=== PATIENT | male | born 1930 | race Caucasian/White ===

== ENCOUNTER → 2018-08-04 | Outpatient (CLI) | payer OTHER ==
[~2018-08-04] MED LIST: ACET325 PO; AMLO5 PO; ANORO ELLIPTA1 EACH INH; ASPI81CH PO; ATOR80 PO; CARV25 PO; CITA20 PO; CLOP75 PO; FINA5 PO; FLUSAL5005 INH; HUMALOG KW200 UNIT/1 SC; INSULANPEN SC; ISOMON20 PO; Lasix40 MG PO; METF500 PO; NAPR500 PO; NYSTRITC TOP; OCUVITE EYE +1 EACH; Ocuvite Lutein1 EACH PO; Omeprazole20 M1 PO; TAMS.4ER PO; Ventolin Soln3 ML INH; XARELTO15 MG PO
[2018-08-04 14:51] LABS: Source, Urine Voided
[2018-08-04 15:04] LABS: Appearance, Urine Clear (Clear); Bilirubin, Urine Neg (Neg); Blood, Urine Neg (Neg); Color, Urine Yellow (P-Yellow); Glucose Qualitative, Urine Neg (Neg); Ketones, Urine Neg (Neg); Leukocyte Esterase, Urine Neg (Neg); Nitrite, Urine Neg (Neg); Protein, Urine 2+ (Neg); Urobilinogen, Urine NORM (Normal)
[2018-08-04 15:22] LABS: Bacteria Rare /hpf; Mucus Light (0-Heavy); Red Blood Cells, Urine Not Seen /hpf (0-2); Squamous Epithelial Cells Few /hpf (Few); White Blood Cells, Urine 0-2 /hpf (0-5)
[2018-08-04 15:23] LABS: Hyaline Casts Rare /lpf (0-2)
[2018-08-04 15:24] LABS: Granular Casts Rare /lpf (0)
== END ==
LOC: LAB 14:41 → LAB SHORT 14:41
PROVIDERS: Nurse Practitioner Family
DX: N39.0 Urinary tract infection, site not specified (principal)
CPT/HCPCS: 81001

== ENCOUNTER 2018-11-24 17:07 | Emergency (ER) | payer OTHER ==
[~2018-11-24] VITALS: Ht 175.3 cm; Wt 86.2 kg
[2018-11-24 17:51] LABS: BASOPHILS ABSOLUTE AUTO 0.03 K/mm3 (0.00-0.23); BASOPHILS PERCENT AUTO 0 % (0-2); EOSINOPHILS ABSOLUTE AUTO 0.12 K/mm3 (0.00-0.68); EOSINOPHILS PERCENT AUTO 2 % (0-6); Hematocrit 36.5 % (37.0-53.0); Hemoglobin 11.5 g/dL (13.5-17.5); IMMATURE GRAN ABSOLUTE AUTO 0.04 K/mm3 (0.00-0.10); IMMATURE GRAN PERCENT AUTO 1 % (0-1); LYMPHOCYTES ABSOLUTE AUTO 2.19 K/mm3 (0.84-5.20); LYMPHOCYTES PERCENT AUTO 27 % (21-46); MONOCYTES ABSOLUTE AUTO 0.83 K/mm3 (0.16-1.47); MONOCYTES PERCENT AUTO 10 % (4-13); Mean Corpuscular HGB 28.9 pg (26.0-34.0); Mean Corpuscular HGB Conc 31.5 g/dL (31.5-36.5); Mean Corpuscular Volume 92 fL (80-100); Mean Platelet Volume 10.1 fL (9.1-12.4); NEUTROPHILS ABSOLUTE AUTO 5.06 K/mm3 (1.96-9.15); NEUTROPHILS PERCENT AUTO 61 % (41-73); Platelet Count 188 K/mm3 (150-400); RDW Coefficient Variation 14.1 % (11.7-14.2); RDW Standard Deviation 48.3 fL (35.1-46.3); Red Blood Cell Count 3.98 M/mm3 (4.30-5.90); White Blood Cell Count 8.27 K/mm3 (4.00-11.30)
[2018-11-24 18:08] LABS: International Normalized Ratio 0.99; Prothrombin Time Results 10.5 Sec (9.7-11.5)
[2018-11-24 18:16] LABS: Albumin, Blood 3.7 g/dL (3.4-5.0); Bilirubin, Total 0.5 mg/dL (0.1-1.0); Bun/Creatinine Ratio 15.7 (12.0-20.0); Calcium, Blood 9.1 mg/dL (8.5-10.1); Creatinine, Blood 1.85 mg/dL (0.60-1.20); Globulin, Blood 3.7 g/dL (2.2-4.0); Potassium, Blood 4.5 mmol/L (3.5-5.5); Total Protein, Blood 7.4 g/dL (6.4-8.2)
[2018-11-24] MEDS ORDERED: BACL10 PO (18:16)
== END 2018-11-24 20:23 | disposition home or self-care (01) ==
LOC: ER 17:07
PROVIDERS: Emergency Medicine
DX: S40.021A Contusion of right upper arm, initial encounter (principal); I13.0 Hypertensive heart and chronic kidney disease with heart failure and stage 1 through stage 4 chronic kidney disease, or unspecified chronic kidney disease; I50.30 Unspecified diastolic (congestive) heart failure; N18.3 Chronic kidney disease, stage 3 (moderate); E11.22 Type 2 diabetes mellitus with diabetic chronic kidney disease; F01.50 Vascular dementia, unspecified severity, without behavioral disturbance, psychotic disturbance, mood disturbance, and anxiety; I25.10 Atherosclerotic heart disease of native coronary artery without angina pectoris; E78.5 Hyperlipidemia, unspecified; N40.0 Benign prostatic hyperplasia without lower urinary tract symptoms; Z79.4 Long term (current) use of insulin; Z86.711 Personal history of pulmonary embolism; Z79.899 Other long term (current) drug therapy; X58.XXXA Exposure to other specified factors, initial encounter
CPT/HCPCS: 80053; 85025; 85610; 85730; 93971; 99284-25

== ENCOUNTER → 2019-01-09 | Outpatient (CLI) | payer OTHER ==
[~2019-01-09] MED LIST changes: +BACL10 PO; +DICLOFENAC SODI25 GM; +FURO40 PO; +VITAMIN D250000 UNIT PO; +Zinc Oxide56.7 GM; +[UNRECOGNIZED DRUG - OTHER]
[2019-01-09 14:16] LABS: Creatinine, Urine Random 46.8 mg/dL (27.00-270.00); Protein, Urine Random 32.4 mg/dL (0.0-11.9)
== END | disposition home or self-care (01) ==
LOC: LAB SHORT 13:44 → LAB 13:44
PROVIDERS: Internal Medicine
DX: N18.3 Chronic kidney disease, stage 3 (moderate) (principal)
CPT/HCPCS: 82570; 84156

== ENCOUNTER 2019-01-14 09:02 | Emergency (ER) | payer OTHER ==
[~2019-01-14] VITALS: Ht 177.8 cm; Wt 113.4 kg
[~2019-01-14 09:02] MED LIST changes: -DICLOFENAC SODI25 GM; -FURO40 PO; -VITAMIN D250000 UNIT PO; -Zinc Oxide56.7 GM; -[UNRECOGNIZED DRUG - OTHER]
[2019-01-14] MEDS ORDERED: XARELTO15 MG PO (09:24)
[2019-01-14] MEDS ORDERED: Zinc Oxide56.7 GM (09:26)
[2019-01-14] MEDS ORDERED: DICLOFENAC SODI25 GM (09:27)
[2019-01-14] MEDS ORDERED: [UNRECOGNIZED DRUG - OTHER] (09:28)
[2019-01-14] MEDS ORDERED: FINA5 PO (09:28)
[2019-01-14] MEDS ORDERED: VITAMIN D250000 UNIT PO (09:28)
[2019-01-14] MEDS ORDERED: INSULANPEN SC (09:29)
[2019-01-14] MEDS ORDERED: METF500 PO (09:29)
[2019-01-14] MEDS ORDERED: ISOMON20 PO (09:29)
[2019-01-14] MEDS ORDERED: FURO40 PO (09:29)
== END 2019-01-14 10:29 | disposition home or self-care (01) ==
LOC: ER 09:02
DX: S51.811A Laceration without foreign body of right forearm, initial encounter (principal); S01.81XA Laceration without foreign body of other part of head, initial encounter; D68.9 Coagulation defect, unspecified; V89.9XXA Person injured in unspecified vehicle accident, initial encounter; Z79.899 Other long term (current) drug therapy; Z79.4 Long term (current) use of insulin; I50.9 Heart failure, unspecified; Z86.73 Personal history of transient ischemic attack (TIA), and cerebral infarction without residual deficits
CPT/HCPCS: 70450; 99283-25; L0160

== ENCOUNTER 2019-08-14 15:06 | Inpatient (IN) | payer OTHER ==
[~2019-08-14] VITALS: Ht 177.8 cm; Wt 96.7 kg
[~2019-08-14 15:06] MED LIST changes: +VITAMIN D250000 UNIT PO; +Zinc Oxide56.7 GM; +[UNRECOGNIZED DRUG - OTHER]
[2019-08-14 16:25] LABS: BASOPHILS ABSOLUTE AUTO 0.03 K/mm3 (0.00-0.23); BASOPHILS PERCENT AUTO 0 % (0-2); EOSINOPHILS ABSOLUTE AUTO 0.07 K/mm3 (0.00-0.68); EOSINOPHILS PERCENT AUTO 1 % (0-6); IMMATURE GRAN ABSOLUTE AUTO 0.03 K/mm3 (0.00-0.10); IMMATURE GRAN PERCENT AUTO 0 % (0-1); LYMPHOCYTES ABSOLUTE AUTO 1.85 K/mm3 (0.84-5.20); LYMPHOCYTES PERCENT AUTO 27 % (21-46); MONOCYTES ABSOLUTE AUTO 0.74 K/mm3 (0.16-1.47); MONOCYTES PERCENT AUTO 11 % (4-13); Mean Corpuscular HGB 27.8 pg (26.0-34.0); Mean Corpuscular HGB Conc 31.3 g/dL (31.5-36.5); Mean Corpuscular Volume 89 fL (80-100); Mean Platelet Volume 11.7 fL (9.1-12.4); NEUTROPHILS ABSOLUTE AUTO 4.21 K/mm3 (1.96-9.15); NEUTROPHILS PERCENT AUTO 61 % (41-73); Platelet Count 157 K/mm3 (150-400); RDW Coefficient Variation 14.3 % (11.7-14.2); RDW Standard Deviation 46.5 fL (35.1-46.3); White Blood Cell Count 6.93 K/mm3 (4.00-11.30)
[2019-08-14 17:02] LABS: Albumin, Blood 3.4 g/dL (3.4-5.0); Albumin/Globulin Ratio 0.8 (0.8-1.8); Bilirubin, Total 0.3 mg/dL (0.1-1.0); Bun/Creatinine Ratio 19.6 (12.0-20.0); Calcium, Blood 8.7 mg/dL (8.5-10.1); Creatinine, Blood 1.79 mg/dL (0.60-1.20); Globulin, Blood 4.1 g/dL (2.2-4.0); Potassium, Blood 4.2 mmol/L (3.5-5.5); Total Protein, Blood 7.5 g/dL (6.4-8.2); Troponin I 0.027 ng/mL (0.000-0.040)
[2019-08-14] MEDS ORDERED: INSULANPEN SC (18:20)
[2019-08-14] MEDS ORDERED: NOVOLOG FL100 UNIT/1 SC ×2 (18:21→18:22)
[2019-08-14] MEDS ORDERED: XARELTO10 MG PO (18:30)
[2019-08-14] MEDS ORDERED: DICLOFENAC SOD100 G1 TOP (18:32)
[2019-08-14] MEDS ORDERED: FURO40 PO (18:33)
[2019-08-14] MEDS ORDERED: ISOMON20 PO (18:33)
[2019-08-14] MEDS ORDERED: FINA5 PO (18:33)
[2019-08-14] MEDS ORDERED: METF500C PO (18:34)
[2019-08-14] MEDS ORDERED: ATOR80 PO (18:35)
[2019-08-14] MEDS ORDERED: CLOP75 PO (18:35)
[2019-08-14] MEDS ORDERED: CITA20 PO (18:35)
[2019-08-14] MEDS ORDERED: BACL10 PO (18:36)
[2019-08-14] MEDS ORDERED: CARVEDILOL12.5 MG PO (18:36)
[2019-08-14] MEDS ORDERED: OMEP20ER PO (18:37)
[2019-08-14] MEDS ORDERED: Nystatin15 GM TOP (18:38)
[2019-08-14] MEDS ORDERED: Milk Of Ma400 MG/5 M PO (18:39)
[2019-08-14] MEDS ORDERED: TAMS.4ER PO (18:40)
[2019-08-14 18:44] LABS: Influenza A Negative (NEGATIVE); Influenza B Negative (NEGATIVE)
[2019-08-14 18:59] LABS: Base Excess Venous -0.1 mmol/L; Bicarbonate Venous 23.7 mmol/L (24.0-30.0); PO2 Venous 38.8 mmHg (38-42); pH Blood Venous 7.37 (7.34-7.37)
[2019-08-14 19:41] LABS: Source, Urine Catheter
[2019-08-14 19:46] LABS: Bilirubin, Urine Neg (Neg); Blood, Urine 4+ (Neg); Glucose Qualitative, Urine Neg (Neg); Ketones, Urine Neg (Neg); Leukocyte Esterase, Urine Neg (Neg); Nitrite, Urine Neg (Neg); Protein, Urine 3+ (Neg); Urobilinogen, Urine NORM (Normal)
[2019-08-14 19:55] LABS: Appearance, Urine Clear (Clear); Color, Urine Pale Yellow (P-Yellow)
[2019-08-14 19:56] LABS: Amorphous Light (0-Heavy); Bacteria Few /hpf; Red Blood Cells, Urine 25-50 /hpf (0-2); Squamous Epithelial Cells Few /hpf (Few); White Blood Cells, Urine 0-2 /hpf (0-5)
--- NOTE | 2019-08-14 21:20 | NUR ---
ADMISSION: PATIENT IS RECIEVED FROM ER VIA STRETCHER. NO COMPLAINTS OF PAIN. PATIENT HAS AUDIBLE WHEEZES, SCORES A 4 ON VIEWS FOR HTN AND BRADYCARDIA, ASYMPTOMATIC. TELI IS ORDER AND WILL BE PLACE SOON AVAILABLE. MITCHELL HAS PINK TINGED URINE BUT PATENT ORIENTED TO ROOM AND CALL ZHONG.
--- NOTE | 2019-08-15 02:36 | NUR ---
PAIN: PATIENT IS REPORTING BACK PAIN, PRN BACLOFEN IS GIVEN.
--- NOTE | 2019-08-15 02:37 | NUR ---
CARDIAC: BP WAS ELEVATED 181/90, PRN HYDRALIZINE WAS GIVEN WITH POOR EFFECT. REPEAT BP'S 173/80 & 181/90. TELEMETRY IS READING SR WITH FREQUENT PVC'S, 2 SINUS BEATS TO ON PVC WITH NO BIGEMITY PER TELI TECH. PATIENT IS ASYMPTOMANTIC. CALL IS PLACED TO DR BAKER, AWAITING CALL BACK.
--- NOTE | 2019-08-15 02:47 | NUR ---
CARDIAC: ORDER OBTAINED FOR LABATOLOL 10 MG IV Q6H PRN FOR SBP ABOVE 160. ALSO ORDER FOR MITCHELL CATH PLACED IN ER WAS OBTAINED.
--- NOTE | 2019-08-15 04:41 | NUR ---
VIEWS: LATE ENTRY FOR 08/14/19 2150- VEIWS SCORE IS 4 ON ADMISSION FOR BP AND HR. BP IS ELEVATED, PATIENT IS ASYMPTOMATIC, HR IS BRADYCARDIC DUE TO BIGEMITY PVC'S. ANA MANZO AIR BAG CURER IS NOTIFIED, VS WILL BE ASSESS Q 2 HOURS AND WILL CALL WITH ANYOTHER CONCERNS. CHARGE NURSE IS ALSO MADE AWARE.
--- NOTE | 2019-08-15 04:58 | NUR ---
MEDICATIONS : LATE ENTRY FOR 08/15/19 0010 MED REC IS COMPLETE AND MITCHELL HAS PINK TINGED URINE DRAINING, PATIENT IS ON XARELTO. ANA MANZO OPHTHALMOLOGY ASSISTANT IS NOTIFIED. HOME MEDS ARE ORDERED INCLUDING XARELTO WHICH WAS GIVEN PER OPHTHALMOLOGY ASSISTANT ORDER.
--- NOTE | 2019-08-15 07:26 | NUR ---
SHIFT SUMMARY: PATIENT IS A&O X2, SELF, PLACE AND FAMILY. ABLE TO MAKE NEEDS KNOWN BUT HE IS FORGETFUL. BED ALARM IS ON FOR SAFETY. BP'S HAVE BEEN ELEVATED THROUGH THE SHIFT, HYDRALAZINE X2 AND LABATALOL X1 WERE GIVEN PER MD ORDER WITH POOR EFFECT. PATIENT REMAINS ASYMPTOMATIC WITH HTN, NO HEADACHE OR BLURRED VISION. SOB AT REST AND UNABLE TO TOLERATE T&P, BECOMES SOB WITH AUDIBLE WHEEZES IF NOT ON LEFT SIDE. MAINTAINING SATS 95% ON RA, TOLERATING PO FLUIDS AND DIET WELL. MITCHELL THIS AM HAS BRIGHT RED BLOOD AFTER XARELTO WAS GIVEN. MITCHELL PUT OUT OVER 1400ML AFTER LASIX WAS GIVEN IN ER. GROIN AND BUTTOCKS ARE RED. NYSTATIN WAS APPLIED AFTER HAYDEN AND MITCHELL CARE.
[2019-08-15 07:47] LABS: BASOPHILS ABSOLUTE AUTO 0.03 K/mm3 (0.00-0.23); BASOPHILS PERCENT AUTO 0 % (0-2); EOSINOPHILS ABSOLUTE AUTO 0.07 K/mm3 (0.00-0.68); EOSINOPHILS PERCENT AUTO 1 % (0-6); Hemoglobin 10.3 g/dL (13.5-17.5); IMMATURE GRAN ABSOLUTE AUTO 0.03 K/mm3 (0.00-0.10); IMMATURE GRAN PERCENT AUTO 0 % (0-1); LYMPHOCYTES PERCENT AUTO 20 % (21-46); MONOCYTES ABSOLUTE AUTO 1.06 K/mm3 (0.16-1.47); MONOCYTES PERCENT AUTO 11 % (4-13); Mean Corpuscular HGB 27.5 pg (26.0-34.0); Mean Corpuscular HGB Conc 31.2 g/dL (31.5-36.5); Mean Corpuscular Volume 88 fL (80-100); Mean Platelet Volume 11.4 fL (9.1-12.4); NEUTROPHILS PERCENT AUTO 68 % (41-73); Platelet Count 172 K/mm3 (150-400); RDW Coefficient Variation 14.6 % (11.7-14.2); RDW Standard Deviation 46.9 fL (35.1-46.3); Red Blood Cell Count 3.74 M/mm3 (4.30-5.90); White Blood Cell Count 9.49 K/mm3 (4.00-11.30)
[2019-08-15 08:28] LABS: Bun/Creatinine Ratio 15.7 (12.0-20.0); Calcium, Blood 9.3 mg/dL (8.5-10.1); Creatinine, Blood 1.97 mg/dL (0.60-1.20); Potassium, Blood 4.5 mmol/L (3.5-5.5)
--- NOTE | 2019-08-15 08:45 | NUR ---
SHORTNESS OF BREATH/HEART RATE PT VERY SHORT OF BREATH AND REPORTS NOT FEELING WELL. PT'S OXYGEN SATURATION IS 95% ON ROOM AIR. PT'S HEART RATE RANGING FROM 70'S TO 40. BP WNL. THIS RN TALKED WITH DR. DORSEY OF PT'S HEART RATE AND SHORTNESS OF BREATH. EKG ORDERED AND DR. DORSEY WAS INTO SEE PT AND WILL PLACE MORE ORDERS. CALL LIGHT IN REACH. WILL CONTINUE TO MONITOR.
--- NOTE | 2019-08-15 12:44 | NUR ---
Brief Pt visit this afternoon. Pt is A&OX2 and denies pain at this time. Pt reports SOB that improves when sitting upright in bed. Pt's son Everette and daughter Kierra arrive. Family appear to not be ready to have any conversations at this time. They do request to speak with Pt's Caremanager. Left voice message with Caremanager Lyndsey and relayed family's request. Palliative Care will remain available.
[2019-08-15 13:38] LABS: CHOL/HDL RATIO 4.5; Cholesterol 113 mg/dL (50-200); HDL Cholesterol 25 mg/dL (>39); LDL/HDL RATIO 2.6; Low Density Lipoprotein Chol 64 mg/dL (0-110); Triglycerides 120 mg/dL (30-160); Very Low Density Lipoprot Chol 24 mg/dL (6-32)
--- NOTE | 2019-08-15 17:57 | NUR ---
SHIFT SUMMARY PT HAD SHORTNESS OF AND REPORTED NOT FEELING WELL THIS AM BUT HAS BEEN BETTER THROUGH OUT THE DAY. NO COMPLAINTS OF SHORTNESS OF BREATH SINCE THIS AM. PT WORKED WITH PHYSICAL THERAPY AND SITTING IN THE CHAIR THIS AFTERNOON/EVENING. PT HAS HAD NO COMPLAINTS OF CHEST PAIN OR OTHER PAIN THIS SHIFT. NO ACUTE CHANGES THIS SHIFT. WILL CONTINUE TO MONITOR. CALL LIGHT IN REACH.
--- NOTE | 2019-08-15 19:07 | NUR ---
Initial spiritual care note: Mr. Davidson was alone in room when I visited. He appeared restless and unable to find a comfortable position in bed. He spoke about the of his and how much he misses her. He was not clear why he is hospitalized. He did allow a brief prayer, but his restlessness kept us from habing lengthy conversation. I will remain available to pt and family.
--- NOTE | 2019-08-15 20:45 | NUR ---
CARDIAC: BP WAS ELEVBATED HYDRALIZINE WAS GIVEN PER JUL. PATIENT REMAINS ASYMPTOMATIC.
[2019-08-16 04:57] LABS: BASOPHILS ABSOLUTE AUTO 0.03 K/mm3 (0.00-0.23); BASOPHILS PERCENT AUTO 0 % (0-2); EOSINOPHILS ABSOLUTE AUTO 0.07 K/mm3 (0.00-0.68); EOSINOPHILS PERCENT AUTO 1 % (0-6); Hematocrit 31.6 % (37.0-53.0); IMMATURE GRAN ABSOLUTE AUTO 0.02 K/mm3 (0.00-0.10); IMMATURE GRAN PERCENT AUTO 0 % (0-1); LYMPHOCYTES ABSOLUTE AUTO 1.69 K/mm3 (0.84-5.20); LYMPHOCYTES PERCENT AUTO 19 % (21-46); MONOCYTES ABSOLUTE AUTO 1.16 K/mm3 (0.16-1.47); MONOCYTES PERCENT AUTO 13 % (4-13); Mean Corpuscular HGB 28.1 pg (26.0-34.0); Mean Corpuscular HGB Conc 31.6 g/dL (31.5-36.5); Mean Corpuscular Volume 89 fL (80-100); Mean Platelet Volume 11.3 fL (9.1-12.4); NEUTROPHILS ABSOLUTE AUTO 6.02 K/mm3 (1.96-9.15); NEUTROPHILS PERCENT AUTO 67 % (41-73); Platelet Count 162 K/mm3 (150-400); RDW Coefficient Variation 14.6 % (11.7-14.2); Red Blood Cell Count 3.56 M/mm3 (4.30-5.90); White Blood Cell Count 8.99 K/mm3 (4.00-11.30)
[2019-08-16 05:51] LABS: Bun/Creatinine Ratio 16.9 (12.0-20.0); Calcium, Blood 9.1 mg/dL (8.5-10.1); Creatinine, Blood 2.13 mg/dL (0.60-1.20); Potassium, Blood 4.2 mmol/L (3.5-5.5)
--- NOTE | 2019-08-16 06:45 | NUR ---
SHIFT SUMMARY: PATIENT HAD FAIR EFFECT FROM HYDRALAZINE GIVEN X2. PATIENT REMAINED ASYMTOMATIC THROUGH THE SHIFT AND SLEPT WELL. PATIENT BECOMES SOB IF ON BACK OR RIGHT SIDE AND CAN NOT TOLERATE T&P. TELI SHOWS SR WITH BIGEMINAL PVC'S. PATIENT IS ALERT AND ORIENTED TO SELF AND PLACE, NO COMPLAINTS OF PAIN. POOR APPETITE AND NEEDS ENCOURAGMENT FOR PO FLUIDS. PATIENT REFUSES SCD'S AND BED ALARM IS ON FOR SAFETY.
--- NOTE | 2019-08-16 15:52 | NUR ---
SHIFT SUMMARY PT HAS BEEN SLEEPING MOST OF THE SHIFT. PT HAS HAD NO COMPLAINTS OF PAIN OR SHORTNESS OF BREATH THIS SHIFT. UP IN THE CHAIR FOR MEALS. PT'S MITCHELL REMOVED THIS EVENING. WILL MONITOR FOR VOIDING. NO ACUTE CHANGES THIS SHIFT. POSSIBLE DISCHARGE TOMORROW. CALL LIGHT IN REACH AND BED ALARM IN PLACE.
--- NOTE | 2019-08-17 04:42 | NUR ---
SHIFT SUMMARY PT IS ALERT BUT SEEMS FORGETFUL / CONFUSED AT TIMES. HAS BEEN REORIENTED PRN. NEEDS 2X TO REPOSITION; HAS BEEN REPOSITIONED MULT TIMES THROUGH THE NIGHT. PT IS TOLERATING PO INTAKE AND IS VOIDING. ATTENS IN PLACE. BED ALARM USED DURING THE SHIFT. ASSISTED WITH ADL'S PRN.
--- NOTE | 2019-08-17 05:09 | NUR ---
HEART RHYTHM RN INFORMED BY MYSQL DATABASE ADMINISTRATOR THAT PT IS HAVING MORE FREQUENT PVC'S. ON-CALL HOSPITALIST NOTIFIED; MAGNESIUM LAB ORDERS PUT IN PER PHYSICIAN. WILL CONTINUE TO MONITOR.
[2019-08-17 05:20] LABS: BASOPHILS ABSOLUTE AUTO 0.02 K/mm3 (0.00-0.23); BASOPHILS PERCENT AUTO 0 % (0-2); EOSINOPHILS ABSOLUTE AUTO 0.07 K/mm3 (0.00-0.68); EOSINOPHILS PERCENT AUTO 1 % (0-6); Hematocrit 29.9 % (37.0-53.0); Hemoglobin 9.6 g/dL (13.5-17.5); IMMATURE GRAN ABSOLUTE AUTO 0.03 K/mm3 (0.00-0.10); IMMATURE GRAN PERCENT AUTO 0 % (0-1); LYMPHOCYTES ABSOLUTE AUTO 1.65 K/mm3 (0.84-5.20); LYMPHOCYTES PERCENT AUTO 19 % (21-46); MONOCYTES ABSOLUTE AUTO 1.11 K/mm3 (0.16-1.47); MONOCYTES PERCENT AUTO 13 % (4-13); Mean Corpuscular HGB 28.2 pg (26.0-34.0); Mean Corpuscular HGB Conc 32.1 g/dL (31.5-36.5); Mean Corpuscular Volume 88 fL (80-100); Mean Platelet Volume 11.3 fL (9.1-12.4); NEUTROPHILS ABSOLUTE AUTO 5.93 K/mm3 (1.96-9.15); NEUTROPHILS PERCENT AUTO 67 % (41-73); Platelet Count 155 K/mm3 (150-400); RDW Coefficient Variation 14.7 % (11.7-14.2); RDW Standard Deviation 47.2 fL (35.1-46.3); White Blood Cell Count 8.81 K/mm3 (4.00-11.30)
[2019-08-17 05:43] LABS: Bun/Creatinine Ratio 18.9 (12.0-20.0); Calcium, Blood 8.8 mg/dL (8.5-10.1); Creatinine, Blood 2.28 mg/dL (0.60-1.20); Magnesium, Blood 1.9 mg/dL (1.6-2.4); Potassium, Blood 3.5 mmol/L (3.5-5.5)
--- NOTE | 2019-08-17 18:04 | NUR ---
SHIFT SUMMARY PT AXO TO SELF, PLEASANT AND COOPERATIVE WITH CARE THOUGH EXTREMELY FORGETFUL. SEE PHYSICAL THERAPY AND OCCUPATIONAL THERAPY NOTES. PT HEAVY 2 ASSIST TO CHAIR. VSS. PT SOB AT REST. NSR WITH 1ST DEGREE AND BIGEMINAL PVC'S AT 79 PER TECHNOLOGY ADOPTION MANAGER THIS SHIFT. BED IN LOW POSITION, CALL LIGHT WITHIN REACH, BED ALARM ON PROCESS PROJECT ENGINEER CALLED SON TO UPDATE ON PATIENT AND DISCHARGE, SEE NOTE.
[2019-08-18 05:55] LABS: BASOPHILS ABSOLUTE AUTO 0.02 K/mm3 (0.00-0.23); BASOPHILS PERCENT AUTO 0 % (0-2); EOSINOPHILS ABSOLUTE AUTO 0.11 K/mm3 (0.00-0.68); EOSINOPHILS PERCENT AUTO 1 % (0-6); Hematocrit 29.9 % (37.0-53.0); Hemoglobin 9.4 g/dL (13.5-17.5); IMMATURE GRAN ABSOLUTE AUTO 0.03 K/mm3 (0.00-0.10); IMMATURE GRAN PERCENT AUTO 0 % (0-1); LYMPHOCYTES ABSOLUTE AUTO 1.49 K/mm3 (0.84-5.20); LYMPHOCYTES PERCENT AUTO 17 % (21-46); MONOCYTES ABSOLUTE AUTO 1.24 K/mm3 (0.16-1.47); MONOCYTES PERCENT AUTO 14 % (4-13); Mean Corpuscular HGB 27.9 pg (26.0-34.0); Mean Corpuscular HGB Conc 31.4 g/dL (31.5-36.5); Mean Corpuscular Volume 89 fL (80-100); Mean Platelet Volume 11.3 fL (9.1-12.4); NEUTROPHILS PERCENT AUTO 68 % (41-73); Platelet Count 156 K/mm3 (150-400); RDW Coefficient Variation 14.6 % (11.7-14.2); RDW Standard Deviation 47.8 fL (35.1-46.3); Red Blood Cell Count 3.37 M/mm3 (4.30-5.90); White Blood Cell Count 8.89 K/mm3 (4.00-11.30)
[2019-08-18 06:11] LABS: Bun/Creatinine Ratio 21.5 (12.0-20.0); Calcium, Blood 8.7 mg/dL (8.5-10.1); Creatinine, Blood 2.37 mg/dL (0.60-1.20); Potassium, Blood 3.6 mmol/L (3.5-5.5)
--- NOTE | 2019-08-18 07:17 | NUR ---
SUMMARY PT SLEPT WELL. PT DENIED ANY SOB DURING SHIFT. PT REFUSED RT TX'S T/O SHIFT. PT FOUND TO HAVE RED PAINFUL HAYDEN AREA AND SWOLLEN FORESKIN THAT WAS OCCLUDING PENIS. DR BARRY CALLED AND PAULA WAS ORDERED AND PLACED. THIS AM PT HAD INCREASED EXPIRATORY WHEEZES AND RT WAS CALLED FOR NEB TX. PT CURRENTLY SLEEPING AND IN NO DISTRESS. WCTM. CALL LIGHT IN REACH AND BED ALARM ON.
--- NOTE | 2019-08-18 19:50 | NUR ---
SHIFT SUMMARY PATIENT SLEPT WELL T/O AM. AWAKE AND AGREED UP TO CHAIR FOR LUNCH. SHUFFLING GAIT, SLOW, USED FWW AND 2 PERSON ASSIST W/GB TO RECLINER CHAIR. FED SELF LUNCH, APPETITE GOOD. DENIES PAIN. THEN SLEPT WELL THIS AFTERNOON. FC CONT TO DRAIN PINK URINE. NO S/SX DISTRESS NOTED.
[2019-08-19 06:23] LABS: BASOPHILS ABSOLUTE AUTO 0.02 K/mm3 (0.00-0.23); BASOPHILS PERCENT AUTO 0 % (0-2); EOSINOPHILS ABSOLUTE AUTO 0.09 K/mm3 (0.00-0.68); EOSINOPHILS PERCENT AUTO 1 % (0-6); Hematocrit 29.6 % (37.0-53.0); Hemoglobin 9.3 g/dL (13.5-17.5); IMMATURE GRAN ABSOLUTE AUTO 0.02 K/mm3 (0.00-0.10); IMMATURE GRAN PERCENT AUTO 0 % (0-1); LYMPHOCYTES ABSOLUTE AUTO 1.58 K/mm3 (0.84-5.20); LYMPHOCYTES PERCENT AUTO 22 % (21-46); MONOCYTES ABSOLUTE AUTO 0.94 K/mm3 (0.16-1.47); MONOCYTES PERCENT AUTO 13 % (4-13); Mean Corpuscular HGB 27.9 pg (26.0-34.0); Mean Corpuscular HGB Conc 31.4 g/dL (31.5-36.5); Mean Corpuscular Volume 89 fL (80-100); Mean Platelet Volume 11.8 fL (9.1-12.4); NEUTROPHILS PERCENT AUTO 64 % (41-73); Platelet Count 163 K/mm3 (150-400); RDW Coefficient Variation 14.5 % (11.7-14.2); RDW Standard Deviation 46.8 fL (35.1-46.3); Red Blood Cell Count 3.33 M/mm3 (4.30-5.90); White Blood Cell Count 7.35 K/mm3 (4.00-11.30)
[2019-08-19 06:47] LABS: Bun/Creatinine Ratio 23.1 (12.0-20.0); Calcium, Blood 8.9 mg/dL (8.5-10.1); Creatinine, Blood 2.21 mg/dL (0.60-1.20); Potassium, Blood 3.4 mmol/L (3.5-5.5)
--- NOTE | 2019-08-19 07:05 | NUR ---
recvd report from previous shift rn leighton, pt sleeping in bed, bed rails up x 2, bed in lowest position, call light within reach
--- NOTE | 2019-08-19 07:19 | NUR ---
08/19/19 0630 PT SLEPT ON AND OFF THIS SHIFT. ALERT ONLY TO HIS NAME. DENIED ANY S/S OR DISCOMFORT. BLOOD PRESSURE UP AND DOWN. DIGITAL SPECIALIST DID NOT INFORM RN OF HIGH BP LAST NIGHT AND THIS AM. WHEN VITALS RECHECT LAST NIGHT THE BP WAS NORMAL. MITCHELL PATENT AND DRAINING WELL.
--- NOTE | 2019-08-19 10:23 | NUR ---
DR YAO ROUNDING ON PT
--- NOTE | 2019-08-19 18:03 | NUR ---
shift summary: vss, no acute changes. pt remains oriented to self, follows directions, able to assist to transfer to chair with two person max assist. pt tolerated PO intake with at 100% ADA diet, no short acting insulin required this shift. Pt 1000 ml fluid restriction this shift. pt up in chair for approx 4 hrs this shift, tolerated well. pt denies pain.
--- NOTE | 2019-08-20 05:57 | NUR ---
AURICULAR ACUPUNCTURIST SUMMARY PT A/O X1 TO SELF. PLEASANT AND COOPERTATIVE MOST OF THE TIME. I NOTIFIED PT HAS NOT HAD A BM SINCE 08/16/19. HE DENIES FEELING CONSTIPATED AND REFUSED BOWEL CARE. DENIES CHEST PAIN, SOB, NAUSEA. VSS. NO ACUTE CHANGES. MITCHELL PATENT AND DRAINING. CALL LIGHT WITHIN REACH.
--- NOTE | 2019-08-20 14:58 | NUR ---
REPORT THIS RN CALLED REPORT TO MAL HERRING AT [facility]. PT TO LEAVE AT 1600 TO GO TO [facility].
--- NOTE | 2019-08-20 16:26 | NUR ---
DISCHARGE PT DISCHARGE TO [facility]. PT TRANSFERRED TO PRIVATE VEHICLE VIA WHEELCHAIR BY MINDY TO JACK. REPORT ALREAYD CALLLED TO MAL HERRING AT . IV REMOVED WITHOUT DIFFICULTY. PT'S BELONGIGNS WITH PT.
[2019-08-20] MEDS ORDERED: AMLO10 PO (16:39)
[2019-08-20] MEDS ORDERED: AMOCLA500 PO (16:39)
[2019-08-20] MEDS ORDERED: FLUTICASONE-SA1 EAC1 INH (16:40)
[2019-08-20] MEDS ORDERED: Vsl#3 Capsule1 EACH PO (16:41)
[2019-08-20] MEDS ORDERED: PANT20 PO (16:42)
== END 2019-08-20 17:00 | DRG 280 ==
LOC: ER 15:06 → MEDS 15:07
PROVIDERS: Emergency Medicine; Family Medicine; Internal Medicine Cardiovascular Disease; Nurse Practitioner Acute Care; ADMIT Internal Medicine
DX: I49.9 Cardiac arrhythmia, unspecified (principal); I50.33 Acute on chronic diastolic (congestive) heart failure; I21.4 Non-ST elevation (NSTEMI) myocardial infarction; I13.0 Hypertensive heart and chronic kidney disease with heart failure and stage 1 through stage 4 chronic kidney disease, or unspecified chronic kidney disease; I16.1 Hypertensive emergency; N18.3 Chronic kidney disease, stage 3 (moderate); E11.22 Type 2 diabetes mellitus with diabetic chronic kidney disease; E11.65 Type 2 diabetes mellitus with hyperglycemia; F01.50 Vascular dementia, unspecified severity, without behavioral disturbance, psychotic disturbance, mood disturbance, and anxiety; E66.9 Obesity, unspecified; I25.2 Old myocardial infarction; Z95.1 Presence of aortocoronary bypass graft; Z99.3 Dependence on wheelchair; I48.91 Unspecified atrial fibrillation; J44.9 Chronic obstructive pulmonary disease, unspecified; E78.5 Hyperlipidemia, unspecified; R31.9 Hematuria, unspecified; I25.10 Atherosclerotic heart disease of native coronary artery without angina pectoris; Z95.5 Presence of coronary angioplasty implant and graft; Z86.73 Personal history of transient ischemic attack (TIA), and cerebral infarction without residual deficits; Z86.711 Personal history of pulmonary embolism; Z66 Do not resuscitate; D64.9 Anemia, unspecified; Z91.81 History of falling; N40.1 Benign prostatic hyperplasia with lower urinary tract symptoms
CPT/HCPCS: 36415; 51702; 71045; 80048; 80053; 80061; 81001; 82803; 82947; 83735; 83880; 84443; 84484; 85025; 87804; 93005; 93010; 93306; 94640; 94760; 96374; 96375; 96376; 97110; 97162; 97166; 97530; 97535; 99285-25; A9270; A9270-GY; G0378; J0360; J0456; J0696; J1940; J7050